=== PATIENT | male | born 1970 | race Caucasian/White ===

== ENCOUNTER 2018-07-29 08:45 | Emergency (ER) | payer OTHER, SELFPAY ==
[~2018-07-29] VITALS: Ht 167.6 cm; Wt 67.9 kg
[2018-07-29] MEDS ORDERED: ONDANSETRON 4MG/2ML VIAL (J2405) IV ONE (09:15)
[2018-07-29] MEDS ORDERED: KETOROLAC 30 MG/ML VIAL (J1885) IV ONE (09:15)
[2018-07-29] MEDS ORDERED: NS 1,000 ML IV ONE (09:15)
[2018-07-29 09:40] LABS: BASO # 0.1 10^3/uL (0.0-0.2); BASO % 0.6 % (0.0-1.0); EOS # 0.1 10^3/uL (0.0-0.50); EOS % 0.5 % (0.0-3.0); HEMATOCRIT 46.3 % (42.0-52.0); LYMPH # 2.9 10^3/uL (1.5-4.5); LYMPH % 20.4 % (24.0-44.0); MEAN CORPUSCULAR HEMOGLOBIN 30.9 pg (27.0-33.0); MEAN CORPUSCULAR HGB CONC 34.6 g/dl (32.0-36.5); MEAN CORPUSCULAR VOLUME 89.4 fl (80.0-96.0); MONO # 1.1 10^3/uL (0.0-0.8); NEUTROPHILS # 9.9 10^3/uL (1.8-7.7); PLATELET COUNT, AUTOMATED 284 10^3/uL (150-450); RED BLOOD COUNT 5.18 10^6/uL (4.30-6.10); WHITE BLOOD COUNT 14.2 10^3/uL (4.0-10.0)
[2018-07-29 10:04] LABS: ALBUMIN 3.8 GM/DL (3.2-5.2); ALT/SGPT 12 U/L (12-78); BILIRUBIN,DIRECT 0.3 MG/DL (0.0-0.2); BILIRUBIN,TOTAL 0.9 MG/DL (0.2-1.0); BLOOD UREA NITROGEN 9 MG/DL (7-18); CALCIUM LEVEL 9.2 MG/DL (8.5-10.1); CARBON DIOXIDE LEVEL 28 MEQ/L (21-32); CHLORIDE LEVEL 101 MEQ/L (98-107); CREATININE FOR GFR 1.12 MG/DL (0.70-1.30); GLOMERULAR FILTRATION RATE > 60.0 (>60); GLUCOSE, FASTING 106 MG/DL (70-100); LIPASE 127 U/L (73-393); POTASSIUM SERUM 4.1 MEQ/L (3.5-5.1); SODIUM LEVEL 135 MEQ/L (136-145); TOTAL PROTEIN 7.6 GM/DL (6.4-8.2)
[2018-07-29] MEDS ORDERED: ISOVUE-370 76% 100ML VIAL (Q9967) As Ordered ONE (10:08)
--- NOTE | 2018-07-29 10:41 | REP ---
CT of the abdomen and pelvis with IV contrast: There are no comparisons. Studies performed for left upper quadrant abdominal pain. The visualized lung torres are unremarkable. The hepatic parenchyma is homogeneous. The gallbladder, pancreas and spleen are normal size and unremarkable. There is enhancement of the gastric mucosa. This is nonspecific but may represent gastritis. No perigastric inflammatory changes are identified. The adrenals and kidneys are unremarkable except for 2.0 cm left renal simple cyst. There is no hydronephrosis. Abdominal aorta is unremarkable. There is no bowel distension or obstruction. There is no diverticulosis or diverticulitis. There is no pneumoperitoneum. Pelvis: The appendix is unremarkable. The bladder is unremarkable. There is no ascites or adenopathy. Impression: There is enhancement of the gastric mucosa. This is nonspecific but could represent gastritis in the appropriate clinical setting. There is no ascites, adenopathy or mass. The pancreas and spleen are unremarkable. There is a left renal 2.0 cm exophytic simple cyst at the mid pole. There are no renal calculi. There is no hydronephrosis. Electronically Signed by Nishant Sevilla MD 07/29/2018 10:33 A
[2018-07-29 11:20] LABS: APPEARANCE, URINE CLEAR (CLEAR); BACTERIA, URINE AUTO NEGATIVE (NEGATIVE); BILIRUBIN, URINE AUTO NEGATIVE (NEGATIVE); BLOOD, URINE BLOOD NEGATIVE (NEGATIVE); COLOR, URINE YELLOW (YELLOW); GLUCOSE, URINE (UA) AUTO NEGATIVE (NEGATIVE); KETONE, URINE AUTO 1+ mg/dL (NEGATIVE); LEUKOCYTE ESTERASE, URINE AUTO NEGATIVE (NEGATIVE); MUCUS, URINE SMALL (NEGATIVE); NITRITE, URINE AUTO NEGATIVE (NEGATIVE); PROTEIN, URINE AUTO NEGATIVE (NEGATIVE); RBC, URINE AUTO 3 /HPF (0-3); SPECIFIC GRAVITY URINE AUTO 1.047 (1.002-1.035); SQUAMOUS EPITHELIAL CELL UR AU 0 /HPF (0-6); WBC, URINE AUTO 1 /HPF (0-3)
[2018-07-29] MEDS ORDERED: ZOFR8TAB24 PO (11:26)
[2018-07-29] MEDS ORDERED: DICY10CA13 PO (11:27)
[2018-07-29 11:36] VITALS: BP 168/98
--- NOTE | 2018-07-29 14:59 | ED PDOC ---
Post-Departure Follow-Up dr britt faxed formal report of ct abd/p for fu Yazan Orta MD Jul 29, 2018 14:59
== END 2018-07-29 11:38 | disposition home or self-care (01) ==
LOC: M ED 08:45
DX: A08.4 Viral intestinal infection, unspecified (principal); K52.9 Noninfective gastroenteritis and colitis, unspecified; N28.1 Cyst of kidney, acquired; I10 Essential (primary) hypertension; Z72.0 Tobacco use
CPT/HCPCS: 74177; 80048; 80076; 81001; 83690; 85025; 96374; 96375; 99284; J1885; J2405; Q9967